=== PATIENT | male | born 1945 | race Caucasian/White ===

== ENCOUNTER → 2020-08-16 | Outpatient (CLI) | payer OTHER ==
[~2020-08-16] MED LIST: ALLOPURINOL 30300 M2 PO; AMLODIPINE BESY10 MG PO; BENICAR HCT 401 EACH PO; COLESTID1 GM PO; GLIMEPIRIDE2 MG; GLUCOPHAGE XR500 MG; HYDROCHLOROTH12.5 M1 PO; HYDROCODON-ACE1 EAC7 PO; INDOMETHACIN 5050 MG; KLOR-CON 1010 MEQ PO; LANTUS SOL100 UNIT/1 SQ; LOPRESSOR50 PO; NEURONTIN 300300 M1; PERCOCET 7.5-31 EAC1 PO; PRILOSEC20 MG PO; ST. JOSEPH ASPI81 MG PO; VICTOZA 3-0.6 MG/0.1 SQ; ZANAFLEX4 MG PO
== END ==
LOC: SJCVCIMAG 10:46
PROVIDERS: ATTEND Internal Medicine Cardiovascular Disease
DX: I08.0 Rheumatic disorders of both mitral and aortic valves (principal); I49.3 Ventricular premature depolarization; R06.00 Dyspnea, unspecified; I45.10 Unspecified right bundle-branch block; E11.22 Type 2 diabetes mellitus with diabetic chronic kidney disease; I13.10 Hypertensive heart and chronic kidney disease without heart failure, with stage 1 through stage 4 chronic kidney disease, or unspecified chronic kidney disease; N18.9 Chronic kidney disease, unspecified; G47.33 Obstructive sleep apnea (adult) (pediatric); Z98.890 Other specified postprocedural states; Z88.8 Allergy status to other drugs, medicaments and biological substances; Z79.4 Long term (current) use of insulin; Z79.899 Other long term (current) drug therapy; Z86.39 Personal history of other endocrine, nutritional and metabolic disease